=== PATIENT | male | born 1965 | race Caucasian/White ===

== ENCOUNTER 2021-11-06 11:48 | Observation (INO) | payer BC ==
[~2021-11-06] VITALS: Ht 177.8 cm; Wt 127.8 kg
[2021-11-06 12:18] VITALS: BP 137/86
[2021-11-06] MEDS ORDERED: ONDANSETRON 4MG INJ IVP PRN (13:00)
[2021-11-06] MEDS ORDERED: HYDRALAZINE 20MG/ML VIAL IV PRN (13:00)
[2021-11-06 13:36] LABS: BASOPHILS % (AUTO) 0.1 % (0.0-5.0); EOSINOPHILS % (AUTO) 3.1 % (0.0-8.0); HEMATOCRIT 45.3 % (42-54); LYMPHOCYTES % (AUTO) 27.9 % (21.0-51.0); MEAN CORPUSCULAR HEMOGLOBIN 27.9 pg (27.0-33.0); MEAN CORPUSCULAR HGB CONC 31.6 g/dL (32.0-36.0); MEAN CORPUSCULAR VOLUME 88.3 fL (79-99); MONOCYTES % (AUTO) 9.2 % (3.0-13.0); NEUTROPHILS % (AUTO) 59.3 % (40.0-77.0); PLATELET COUNT (AUTO) 234 K/uL (130-400); RED BLOOD CELL COUNT(AUTO) 5.13 MIL/uL (4.50-6.20); RED CELL DISTRIBUTION WIDTH 14.1 % (11.0-15.5); WHITE BLOOD COUNT (AUTO) 8.3 K/uL (4.8-10.8)
[2021-11-06 13:45] LABS: CREATININE 0.9 mg/dL (0.5-1.5); POTASSIUM 3.7 mmol/L (3.5-5.1)
[2021-11-06 13:49] LABS: ALBUMIN 3.4 g/dL (3.5-5.0); BILIRUBIN,TOTAL 0.7 mg/dL (0.2-1.0); TOTAL PROTEIN, SERUM 7.4 g/dL (6.0-8.3)
[2021-11-06 16:01] VITALS: BP 147/84
[2021-11-06 19:00] VITALS: BP 147/83
[2021-11-06] MEDS: LACTATED RINGERS 1000ML 1,000 ML IV SCH (20:26)
[2021-11-07] VITALS: BP 154/87
[2021-11-07 04:00] VITALS: BP 135/87
[2021-11-07 06:13] LABS: BASOPHILS % (AUTO) 0.1 % (0.0-5.0); EOSINOPHILS % (AUTO) 3.8 % (0.0-8.0); HEMATOCRIT 40.6 % (42-54); MEAN CORPUSCULAR HEMOGLOBIN 27.9 pg (27.0-33.0); MEAN CORPUSCULAR HGB CONC 32.3 g/dL (32.0-36.0); MEAN CORPUSCULAR VOLUME 86.6 fL (79-99); MONOCYTES % (AUTO) 8.8 % (3.0-13.0); PLATELET COUNT (AUTO) 248 K/uL (130-400); RED BLOOD CELL COUNT(AUTO) 4.69 MIL/uL (4.50-6.20); RED CELL DISTRIBUTION WIDTH 13.8 % (11.0-15.5); WHITE BLOOD COUNT (AUTO) 7.2 K/uL (4.8-10.8)
[2021-11-07 06:39] LABS: CREATININE 0.9 mg/dL (0.5-1.5); POTASSIUM 3.4 mmol/L (3.5-5.1)
[2021-11-07 07:52] VITALS: BP 144/86
[2021-11-07] MEDS: LACTATED RINGERS 1000ML 1,000 ML IV SCH (08:13)
[2021-11-07 12:12] VITALS: BP 115/75
[2021-11-07 16:00] VITALS: BP 141/85
[2021-11-07 19:00] VITALS: BP 147/72
[2021-11-08 04:00] VITALS: BP 144/79
[2021-11-08] MEDS ORDERED: DOCUSATE SODIUM 100 MG CAP PO SCH ×2 (09:43→21:00)
[2021-11-08 12:00] VITALS: BP 120/78
[2021-11-08] MEDS ORDERED: DOCU-270 PO (15:24)
[2021-11-08] MEDS ORDERED: ONDA4TAB4 PO (15:25)
== END 2021-11-08 16:59 | disposition home or self-care (01) ==
LOC: OBSVTOIN 11:48 → INTOOBSV 11:48 → 3DH 11:48
PROVIDERS: ADMIT Hospitalist; ATTEND Hospitalist
DX: K56.609 Unspecified intestinal obstruction, unspecified as to partial versus complete obstruction (principal); K80.20 Calculus of gallbladder without cholecystitis without obstruction; I10 Essential (primary) hypertension; Z79.899 Other long term (current) drug therapy
CPT/HCPCS: 36415 ×2; 74018; 80048; 80053; 82150; 83690; 85025 ×2; 96360; 96361 ×2; G0378; J7120 ×2